=== PATIENT | female | born 1980 | race American Indian/Alaskan Native ===

== ENCOUNTER 2017-03-26 01:55 | Emergency (ER) | payer MEDICAID ==
[2017-03-26 02:02] VITALS: BP 126/86
[2017-03-26] MEDS ORDERED: TRIMOX PO ONE (06:17)
--- NOTE | 2017-03-26 06:22 | Emergency Department Report ---
HPI - General Chief Complaint: Dental/Oral Time Seen by Provider: 03/26/17 06:17 - HPI HPI: The patient is a 37-year-old female who presents to ED complaining of 7/10 pain in the right side of his mouth x 3 days . Patient states that the pain started 3 days ago and has increased in severity in yesterday. The pain is exacerbated by eating and opening of the mouth. Patient states the pain is not relieved with Goody powder and Tylenol medication. Patient states that it radiates towards ear. Patient describes a as a throbbing, pressure-like sensation. Patient states otherwise well and has no other complaints. Patient has had no fevers and no chills. No chest pain, no shortness of breath. No abdominal pain. No shortness of breath or recent trauma to the face. ED Past Medical Hx - Past Medical History Previous Medical History?: Yes Additional medical history: Vaginal delivery x 1 - Surgical History Past Surgical History?: Yes Additional Surgical History: - Social History Smoking Status: Never Smoker Substance Use Type: Alcohol - Medications Home Medications: Home Medications Medication Instructions Recorded Confirmed Last Taken Type Nystatin/Triamcin 1 applicatio TP BID #1 oint...g. 03/28/13 Unknown Rx [Nystatin-Triamcinolone Oint] methOCARBAMOL [Robaxin] 500 mg PO BID #30 tab 03/28/13 Unknown Rx predniSONE [Deltasone] 20 mg PO QDAY #5 tab 01/11/14 Unknown Rx traMADol [Ultram 50 MG tab] 50 mg PO Q6HR PRN #20 tablet 01/11/14 Unknown Rx Ibuprofen [Motrin] 400 mg PO Q8H PRN #30 tablet 07/12/14 Unknown Rx traMADol [Ultram] 50 mg PO Q6HR PRN #14 tablet 07/12/14 Unknown Rx Acetaminophen/Codeine [Tylenol #3] 1 tab PO Q6H PRN #15 tab 10/16/14 Unknown Rx Doxycycline [Vibramycin CAP] 100 mg PO BID #28 capsule 10/16/14 Unknown Rx Ibuprofen [Motrin 800 MG tab] 800 mg PO Q8HR PRN #30 tablet 10/16/14 Unknown Rx Penicillin Vk [Veetids TAB] 500 mg PO QID #28 tablet 10/16/14 Unknown Rx metroNIDAZOLE [Flagyl TAB] 500 mg PO BID #14 tab 10/16/14 Unknown Rx Amoxicillin [Trimox CAP] 500 mg PO Q8H #30 capsule 12/21/15 Unknown Rx Diclofenac Sodium 75 mg PO BID #20 tablet. 12/21/15 Unknown Rx Acetaminophen/Codeine [Tylenol 1 tab PO Q6H PRN #14 tab 03/26/17 Unknown Rx /Codeine # 3 tab] Amoxicillin [Trimox CAP] 500 mg PO Q8H #30 capsule 03/26/17 Unknown Rx Ibuprofen [Motrin 800 MG tab] 800 mg PO TID #30 tablet 03/26/17 Unknown Rx ED Review of Systems ROS: Stated complaint: TOOTHACHE Other details as noted in HPI Constitutional: denies: chills, fever Eyes: denies: eye pain, eye discharge, vision change ENT: dental pain. denies: ear pain, throat pain, epistaxis, congestion Respiratory: denies: cough, shortness of breath, wheezing Cardiovascular: denies: chest pain, palpitations Endocrine: no symptoms reported Gastrointestinal: denies: abdominal pain, nausea, vomiting, diarrhea Genitourinary: denies: urgency, dysuria, discharge Musculoskeletal: denies: back pain, joint swelling, arthralgia Skin: denies: rash, lesions Neurological: denies: headache, weakness, paresthesias Psychiatric: denies: anxiety, depression Hematological/Lymphatic: denies: easy bleeding, easy bruising Physical Exam - Physical Exam Vital Signs: Vital Signs 03/26/17 03/26/17 02:01 02:23 Temperature 98.3 F 98.3 F Pulse Rate 83 83 Respiratory 16 16 Rate Blood Pressure 126/86 Blood Pressure 126/86 [Right] O2 Sat by Pulse 97 97 Oximetry Physical Exam: GENERAL: Alert and oriented x3, no apparent distress, Normal Gait, atraumatic. HEAD: Head is normocephalic and a-traumatic. EYES: Extra ocular muscles are intact. Pupils are equal, round, and reactive to light and accommodation. EARS: symetrical, atraumatic, non tender, ear canal clear and moderate cerumen, tympanic membrance non inflamed. gross auditory nml bilaterally. NOSE: Nose symetrical, Nontender,Nares appeared normal. MOUTH:Mouth is well hydrated and without lesions. Tonsils nonerythematous or swollen, Uvula midline, Tongue not elevated. Mucous membranes are moist. Posterior pharynx clear, no exudate or lesions. Patent airways. Dental caries seen in tube #2,3, and 4, no gingiva enlargement, no bleeding of the gums. NECK: Supple. Non edematous, No lymphadenopathy or thyromegaly. No C-spine tenderness SKIN: Warm and dry, No lesions, No ulceration or induration present. ED Course Vital Signs 03/26/17 03/26/17 02:01 02:23 Temperature 98.3 F 98.3 F Pulse Rate 83 83 Respiratory 16 16 Rate Blood Pressure 126/86 Blood Pressure 126/86 [Right] O2 Sat by Pulse 97 97 Oximetry ED Medical Decision Making - Medical Decision Making 37-year-old female who presents with right-sided Facial pain secondary to odontogenic caries ED course: Patient received 1000 mg of amoxicillin, Odontogenic infection versus ear infection. Based upon history and physical examination, pain is a result of an infection of tooth number 2,3 and that the pain Pt feels on the right side of her face and towards the ear is referred pain from this infectious process. Pt has no evidence of acute impending airway compromise. At this point, patient will be discharged home on some antibiotics and pain trial, she will do well with an outpatient course of antibiotics. Follow up with the Dental Clinic as referred Vital signs are normal patient is in no acute distress. Pt had an effect uneventful ED stay Critical care attestation.: If time is entered above; I have spent that time in minutes in the direct care of this critically ill patient, excluding procedure time. ED Disposition Clinical Impression: Dental caries, Pain due to dental caries Disposition: TO HOME OR SELFCARE Is pt being admited?: No Does the pt Need Aspirin: No Condition: Stable Instructions: Toothache (ED), Dental Caries (ED) Additional Instructions: Make sure to follow up with the dentist as discussed. Take all your medications as you've been prescribed. If you have any worsening symptoms or develop new symptoms please return to ED immediately. Prescriptions: Acetaminophen/Codeine [Tylenol /Codeine # 3 tab] 1 tab PO Q6H PRN #14 tab PRN Reason: Pain Amoxicillin [Trimox CAP] 500 mg PO Q8H #30 capsule Ibuprofen [Motrin 800 MG tab] 800 mg PO TID #30 tablet Referrals: PRIMARY CARE, [Primary Care Provider] - 3-5 Days [facility] [Outside] - 3-5 Days [facility] [Outside] - 3-5 Days Forms: Accompanied Note, Work/School Release Form(ED) Time of Disposition: 06:23
== END 2017-03-26 06:20 | disposition home or self-care (01) ==
LOC: ED 01:55
DX: K02.9 Dental caries, unspecified (principal)
CPT/HCPCS: 99282

== ENCOUNTER 2017-05-27 19:12 | Emergency (ER) | payer MEDICAID ==
[2017-05-27 20:56] VITALS: BP 117/73
[2017-05-28] MEDS ORDERED: MOTRIN PO ONE (00:59)
--- NOTE | 2017-05-28 01:16 | Emergency Department Report ---
- General Chief Complaint: Wound/Laceration Stated Complaint: LAC TO LT 3RD DIGIT Time Seen by Provider: 05/28/17 00:58 Source: patient Mode of arrival: Ambulatory Limitations: No Limitations - History of Present Illness Initial Comments: 37-year-old -Niue[place] female comes in to the emergency room for laceration to her left middle finger 2 days ago. Patient reports she was at [facility] but did not stay to be seen. She reports worsening pain. Patient reports that the day of the injury she had soaked her hand and alcohol. She also place triple antibiotic cream and came to the [facility] emergency room. Patient has no past medical history currently taking no medications last menstrual period 05/20/2017. She has no known drug allergies. Location: other (Left hand middle finger) Extremity Location: Left: Hand Place: home Context: accidental Associated Symptoms: pain Treatments Prior to Arrival: bandage - Related Data Previous Rx's Medication Instructions Recorded Last Taken Type Nystatin/Triamcin 1 applicatio TP BID #1 oint...g. 03/28/13 Unknown Rx [Nystatin-Triamcinolone Oint] methOCARBAMOL [Robaxin] 500 mg PO BID #30 tab 03/28/13 Unknown Rx predniSONE [Deltasone] 20 mg PO QDAY #5 tab 01/11/14 Unknown Rx traMADol [Ultram 50 MG tab] 50 mg PO Q6HR PRN #20 tablet 01/11/14 Unknown Rx traMADol [Ultram] 50 mg PO Q6HR PRN #14 tablet 07/12/14 Unknown Rx Acetaminophen/Codeine [Tylenol #3] 1 tab PO Q6H PRN #15 tab 10/16/14 Unknown Rx Doxycycline [Vibramycin CAP] 100 mg PO BID #28 capsule 10/16/14 Unknown Rx Ibuprofen [Motrin 800 MG tab] 800 mg PO Q8HR PRN #30 tablet 10/16/14 Unknown Rx Penicillin Vk [Veetids TAB] 500 mg PO QID #28 tablet 10/16/14 Unknown Rx metroNIDAZOLE [Flagyl TAB] 500 mg PO BID #14 tab 10/16/14 Unknown Rx Amoxicillin [Trimox CAP] 500 mg PO Q8H #30 capsule 12/21/15 Unknown Rx Diclofenac Sodium 75 mg PO BID #20 tablet. 12/21/15 Unknown Rx Acetaminophen/Codeine [Tylenol 1 tab PO Q6H PRN #14 tab 03/26/17 Unknown Rx /Codeine # 3 tab] Amoxicillin [Trimox CAP] 500 mg PO Q8H #30 capsule 03/26/17 Unknown Rx Ibuprofen [Motrin 800 MG tab] 800 mg PO TID #30 tablet 03/26/17 Unknown Rx Cephalexin [Keflex] 500 mg PO Q12HR #20 cap 05/28/17 Unknown Rx Ibuprofen [Motrin 400 MG tab] 400 mg PO Q8H PRN #15 tablet 05/28/17 Unknown Rx Allergies Allergy/AdvReac Type Severity Reaction Status Date / Time No Known Allergies Allergy Verified 10/16/14 14:15 ED Review of Systems ROS: Stated complaint: LAC TO LT 3RD DIGIT Other details as noted in HPI Constitutional: denies: chills, fever Eyes: denies: eye pain, eye discharge, vision change ENT: denies: ear pain, throat pain Respiratory: denies: cough, shortness of breath, wheezing Cardiovascular: denies: chest pain, palpitations Endocrine: no symptoms reported Gastrointestinal: denies: abdominal pain, nausea, diarrhea Genitourinary: denies: urgency, dysuria, discharge Musculoskeletal: denies: back pain, joint swelling, arthralgia Skin: other (cut on left middle finger pain). denies: rash, lesions Neurological: denies: headache, weakness, paresthesias Psychiatric: denies: anxiety, depression Hematological/Lymphatic: denies: easy bleeding, easy bruising ED Past Medical Hx - Past Medical History Previous Medical History?: No Additional medical history: Vaginal delivery x 1 - Surgical History Additional Surgical History: - Social History Smoking Status: Current Every Day Smoker Substance Use Type: None - Medications Home Medications: Home Medications Medication Instructions Recorded Confirmed Last Taken Type Nystatin/Triamcin 1 applicatio TP BID #1 oint...g. 03/28/13 Unknown Rx [Nystatin-Triamcinolone Oint] methOCARBAMOL [Robaxin] 500 mg PO BID #30 tab 03/28/13 Unknown Rx predniSONE [Deltasone] 20 mg PO QDAY #5 tab 01/11/14 Unknown Rx traMADol [Ultram 50 MG tab] 50 mg PO Q6HR PRN #20 tablet 01/11/14 Unknown Rx traMADol [Ultram] 50 mg PO Q6HR PRN #14 tablet 07/12/14 Unknown Rx Acetaminophen/Codeine [Tylenol #3] 1 tab PO Q6H PRN #15 tab 10/16/14 Unknown Rx Doxycycline [Vibramycin CAP] 100 mg PO BID #28 capsule 10/16/14 Unknown Rx Ibuprofen [Motrin 800 MG tab] 800 mg PO Q8HR PRN #30 tablet 10/16/14 Unknown Rx Penicillin Vk [Veetids TAB] 500 mg PO QID #28 tablet 10/16/14 Unknown Rx metroNIDAZOLE [Flagyl TAB] 500 mg PO BID #14 tab 10/16/14 Unknown Rx Amoxicillin [Trimox CAP] 500 mg PO Q8H #30 capsule 12/21/15 Unknown Rx Diclofenac Sodium 75 mg PO BID #20 tablet. 12/21/15 Unknown Rx Acetaminophen/Codeine [Tylenol 1 tab PO Q6H PRN #14 tab 03/26/17 Unknown Rx /Codeine # 3 tab] Amoxicillin [Trimox CAP] 500 mg PO Q8H #30 capsule 03/26/17 Unknown Rx Ibuprofen [Motrin 800 MG tab] 800 mg PO TID #30 tablet 03/26/17 Unknown Rx Cephalexin [Keflex] 500 mg PO Q12HR #20 cap 05/28/17 Unknown Rx Ibuprofen [Motrin 400 MG tab] 400 mg PO Q8H PRN #15 tablet 05/28/17 Unknown Rx ED Physical Exam - General Limitations: No Limitations - Head Head exam: Present: atraumatic, normocephalic - Neurological Exam Neurological exam: Present: alert, oriented X3 - Psychiatric Psychiatric exam: Present: normal affect, normal mood - Skin Skin exam: Present: warm, dry, intact, other (laceration to the left middle proximal finger bleeding is controlled tenderness to palpate). Absent: erythema , ecchymosis ED Course Vital Signs 05/27/17 05/27/17 20:15 20:50 Temperature 98.6 F 32.1 F L Pulse Rate 77 76 Respiratory 16 16 Rate Blood Pressure 117/73 Blood Pressure 179/11 [Right] O2 Sat by Pulse 98 100 Oximetry ED Medical Decision Making - Medical Decision Making Patient has been evaluated by this provider fast track. I discussed the patient since has been over 12 hours for her laceration that we will not be able to suture it up for purpose of infection. I discussed the patient that we will soak it with warm water and Betadine. And bandaged it up. Discussed the patient she is to follow-up with her primary care provider. Patient verbalized understanding. Critical care attestation.: If time is entered above; I have spent that time in minutes in the direct care of this critically ill patient, excluding procedure time. ED Disposition Clinical Impression: Laceration of finger of left hand Qualifiers: Encounter type: initial encounter Finger: middle finger Damage to nail status: without damage Foreign body presence: with foreign body Qualified Code(s): S61.223A - Laceration with foreign body of left middle finger without damage to nail, initial encounter Disposition: - TO HOME OR SELFCARE Is pt being admited?: No Does the pt Need Aspirin: No Condition: Stable Instructions: Laceration (ED) Additional Instructions: Please keep the wound clean and dry. You may apply triple antibiotics. Change dressing daily. Tylenol or Motrin for pain control. Please follow-up with your primary care provider for further evaluation. Prescriptions: Cephalexin [Keflex] 500 mg PO Q12HR #20 cap Ibuprofen [Motrin 400 MG tab] 400 mg PO Q8H PRN #15 tablet PRN Reason: Pain Referrals: GRECIA ADKINS MD [Primary Care Provider] - 3-5 Days Forms: Work/School Release Form(ED)
[2017-05-28] MEDS ORDERED: BOOSTRIX IM ONE (01:49)
== END 2017-05-28 01:50 | disposition home or self-care (01) ==
LOC: ED 19:12
DX: S61.213A Laceration without foreign body of left middle finger without damage to nail, initial encounter (principal); F17.200 Nicotine dependence, unspecified, uncomplicated; X58.XXXA Exposure to other specified factors, initial encounter; Y93.89 Activity, other specified; Y92.89 Other specified places as the place of occurrence of the external cause; Y99.8 Other external cause status
CPT/HCPCS: 90471; 90715; 99282

== ENCOUNTER 2017-10-25 21:30 | Emergency (ER) | payer MEDICAID, OTHER ==
[2017-10-25 21:47] VITALS: BP 114/73
[2017-10-26] MEDS ORDERED: CLEOCIN PO ONE (00:06)
[2017-10-26] MEDS ORDERED: ULTRAM PO ONE (00:06)
[2017-10-26] MEDS ORDERED: ZOFRAN ODT ONE (00:08)
[2017-10-26] MEDS ORDERED: ZOFRAN ODT PO ONE (00:10)
--- NOTE | 2017-10-26 00:12 | Emergency Department Report ---
ED ENT HPI - General Chief complaint: Dental/Oral Stated complaint: TOOTHACHE/EAR/HEAD/STOMACH PAIN Time Seen by Provider: 10/25/17 23:48 Source: patient Mode of arrival: Ambulatory Limitations: No Limitations - History of Present Illness Initial comments: Patient with 37-year-old -[place] female presents with dental pain 1 month patient states unable to see given to see dentist has had similar flares of this dental carry for the past year patient denies fevers chills. No nausea vomiting no throat or ear pain patient denies smoking MD complaint: tooth pain Onset/Timin -: week(s) Location: tooth # (3) Severity: moderate Severity scale (0 -10): 5 Quality: aching Consistency: intermittent Improves with: none Worsens with: other (hot cold stimuli ) Context- Dental: history of dental caries, poor dental care Associated Symptoms: toothache. denies: fever, cough, gum swelling, pain with swallowing, sore throat, tinnitus, hearing loss, discharge from ear, rhinorrhea - Related Data Previous Rx's Medication Instructions Recorded Last Taken Type Nystatin/Triamcin 1 applicatio TP BID #1 oint...g. 03/28/13 Unknown Rx [Nystatin-Triamcinolone Oint] methOCARBAMOL [Robaxin] 500 mg PO BID #30 tab 03/28/13 Unknown Rx predniSONE [Deltasone] 20 mg PO QDAY #5 tab 01/11/14 Unknown Rx traMADol [Ultram 50 MG tab] 50 mg PO Q6HR PRN #20 tablet 01/11/14 Unknown Rx traMADol [Ultram] 50 mg PO Q6HR PRN #14 tablet 07/12/14 Unknown Rx Acetaminophen/Codeine [Tylenol #3] 1 tab PO Q6H PRN #15 tab 10/16/14 Unknown Rx Doxycycline [Vibramycin CAP] 100 mg PO BID #28 capsule 10/16/14 Unknown Rx Ibuprofen [Motrin 800 MG tab] 800 mg PO Q8HR PRN #30 tablet 10/16/14 Unknown Rx Penicillin Vk [Veetids TAB] 500 mg PO QID #28 tablet 10/16/14 Unknown Rx metroNIDAZOLE [Flagyl TAB] 500 mg PO BID #14 tab 10/16/14 Unknown Rx Amoxicillin [Trimox CAP] 500 mg PO Q8H #30 capsule 12/21/15 Unknown Rx Diclofenac Sodium 75 mg PO BID #20 tablet. 12/21/15 Unknown Rx Acetaminophen/Codeine [Tylenol 1 tab PO Q6H PRN #14 tab 03/26/17 Unknown Rx /Codeine # 3 tab] Amoxicillin [Trimox CAP] 500 mg PO Q8H #30 capsule 03/26/17 Unknown Rx Ibuprofen [Motrin 800 MG tab] 800 mg PO TID #30 tablet 03/26/17 Unknown Rx Cephalexin [Keflex] 500 mg PO Q12HR #20 cap 05/28/17 Unknown Rx Ibuprofen [Motrin 400 MG tab] 400 mg PO Q8H PRN #15 tablet 05/28/17 Unknown Rx Chlorhexidine Mouthwash [Peridex] 15 ml MM BID #1 bottle 10/26/17 Unknown Rx Clindamycin [Clindamycin CAP] 300 mg PO Q8H #30 cap 10/26/17 Unknown Rx Naproxen [Naprosyn TAB] 500 mg PO BID PRN #60 tablet 10/26/17 Unknown Rx Ondansetron [Zofran Odt] 4 mg PO TID PRN #10 tab.rapdis 10/26/17 Unknown Rx Ranitidine HCl [Zantac 150 MG TAB] 150 mg PO BID #60 tablet 10/26/17 Unknown Rx Allergies Allergy/AdvReac Type Severity Reaction Status Date / Time No Known Allergies Allergy Verified 10/16/14 14:15 ED Dental HPI - General Chief complaint: Dental/Oral Stated complaint: TOOTHACHE/EAR/HEAD/STOMACH PAIN Time Seen by Provider: 10/25/17 23:48 Source: patient Mode of arrival: Ambulatory Limitations: No Limitations - Related Data Previous Rx's Medication Instructions Recorded Last Taken Type Nystatin/Triamcin 1 applicatio TP BID #1 oint...g. 03/28/13 Unknown Rx [Nystatin-Triamcinolone Oint] methOCARBAMOL [Robaxin] 500 mg PO BID #30 tab 03/28/13 Unknown Rx predniSONE [Deltasone] 20 mg PO QDAY #5 tab 01/11/14 Unknown Rx traMADol [Ultram 50 MG tab] 50 mg PO Q6HR PRN #20 tablet 01/11/14 Unknown Rx traMADol [Ultram] 50 mg PO Q6HR PRN #14 tablet 07/12/14 Unknown Rx Acetaminophen/Codeine [Tylenol #3] 1 tab PO Q6H PRN #15 tab 10/16/14 Unknown Rx Doxycycline [Vibramycin CAP] 100 mg PO BID #28 capsule 10/16/14 Unknown Rx Ibuprofen [Motrin 800 MG tab] 800 mg PO Q8HR PRN #30 tablet 10/16/14 Unknown Rx Penicillin Vk [Veetids TAB] 500 mg PO QID #28 tablet 10/16/14 Unknown Rx metroNIDAZOLE [Flagyl TAB] 500 mg PO BID #14 tab 10/16/14 Unknown Rx Amoxicillin [Trimox CAP] 500 mg PO Q8H #30 capsule 12/21/15 Unknown Rx Diclofenac Sodium 75 mg PO BID #20 tablet.dr 12/21/15 Unknown Rx Acetaminophen/Codeine [Tylenol 1 tab PO Q6H PRN #14 tab 03/26/17 Unknown Rx /Codeine # 3 tab] Amoxicillin [Trimox CAP] 500 mg PO Q8H #30 capsule 03/26/17 Unknown Rx Ibuprofen [Motrin 800 MG tab] 800 mg PO TID #30 tablet 03/26/17 Unknown Rx Cephalexin [Keflex] 500 mg PO Q12HR #20 cap 05/28/17 Unknown Rx Ibuprofen [Motrin 400 MG tab] 400 mg PO Q8H PRN #15 tablet 05/28/17 Unknown Rx Chlorhexidine Mouthwash [Peridex] 15 ml MM BID #1 bottle 10/26/17 Unknown Rx Clindamycin [Clindamycin CAP] 300 mg PO Q8H #30 cap 10/26/17 Unknown Rx Naproxen [Naprosyn TAB] 500 mg PO BID PRN #60 tablet 10/26/17 Unknown Rx Ondansetron [Zofran Odt] 4 mg PO TID PRN #10 tab.rapdis 10/26/17 Unknown Rx Ranitidine HCl [Zantac 150 MG TAB] 150 mg PO BID #60 tablet 10/26/17 Unknown Rx Allergies Allergy/AdvReac Type Severity Reaction Status Date / Time No Known Allergies Allergy Verified 10/16/14 14:15 ED Review of Systems ROS: Stated complaint: TOOTHACHE/EAR/HEAD/STOMACH PAIN Other details as noted in HPI Constitutional: denies: chills, fever Eyes: denies: eye pain, eye discharge, vision change ENT: dental pain. denies: ear pain, throat pain Respiratory: denies: cough, shortness of breath, wheezing Cardiovascular: denies: chest pain, palpitations Endocrine: no symptoms reported Gastrointestinal: denies: abdominal pain, nausea, diarrhea Genitourinary: denies: urgency, dysuria, discharge Musculoskeletal: denies: back pain, joint swelling, arthralgia Skin: denies: rash, lesions Neurological: denies: headache, weakness, paresthesias Psychiatric: denies: anxiety, depression Hematological/Lymphatic: denies: easy bleeding, easy bruising ED Past Medical Hx - Past Medical History Additional medical history: Vaginal delivery x 1 - Surgical History Additional Surgical History: - Social History Smoking Status: Current Every Day Smoker Substance Use Type: None - Medications Home Medications: Home Medications Medication Instructions Recorded Confirmed Last Taken Type Nystatin/Triamcin 1 applicatio TP BID #1 oint...g. 03/28/13 Unknown Rx [Nystatin-Triamcinolone Oint] methOCARBAMOL [Robaxin] 500 mg PO BID #30 tab 03/28/13 Unknown Rx predniSONE [Deltasone] 20 mg PO QDAY #5 tab 01/11/14 Unknown Rx traMADol [Ultram 50 MG tab] 50 mg PO Q6HR PRN #20 tablet 01/11/14 Unknown Rx traMADol [Ultram] 50 mg PO Q6HR PRN #14 tablet 07/12/14 Unknown Rx Acetaminophen/Codeine [Tylenol #3] 1 tab PO Q6H PRN #15 tab 10/16/14 Unknown Rx Doxycycline [Vibramycin CAP] 100 mg PO BID #28 capsule 10/16/14 Unknown Rx Ibuprofen [Motrin 800 MG tab] 800 mg PO Q8HR PRN #30 tablet 10/16/14 Unknown Rx Penicillin Vk [Veetids TAB] 500 mg PO QID #28 tablet 10/16/14 Unknown Rx metroNIDAZOLE [Flagyl TAB] 500 mg PO BID #14 tab 10/16/14 Unknown Rx Amoxicillin [Trimox CAP] 500 mg PO Q8H #30 capsule 12/21/15 Unknown Rx Diclofenac Sodium 75 mg PO BID #20 tablet.dr 12/21/15 Unknown Rx Acetaminophen/Codeine [Tylenol 1 tab PO Q6H PRN #14 tab 03/26/17 Unknown Rx /Codeine # 3 tab] Amoxicillin [Trimox CAP] 500 mg PO Q8H #30 capsule 03/26/17 Unknown Rx Ibuprofen [Motrin 800 MG tab] 800 mg PO TID #30 tablet 03/26/17 Unknown Rx Cephalexin [Keflex] 500 mg PO Q12HR #20 cap 05/28/17 Unknown Rx Ibuprofen [Motrin 400 MG tab] 400 mg PO Q8H PRN #15 tablet 05/28/17 Unknown Rx Chlorhexidine Mouthwash [Peridex] 15 ml MM BID #1 bottle 10/26/17 Unknown Rx Clindamycin [Clindamycin CAP] 300 mg PO Q8H #30 cap 10/26/17 Unknown Rx Naproxen [Naprosyn TAB] 500 mg PO BID PRN #60 tablet 10/26/17 Unknown Rx Ondansetron [Zofran Odt] 4 mg PO TID PRN #10 tab.rapdis 10/26/17 Unknown Rx Ranitidine HCl [Zantac 150 MG TAB] 150 mg PO BID #60 tablet 10/26/17 Unknown Rx ED Physical Exam - General Limitations: No Limitations General appearance: alert, in no apparent distress - Head Head exam: Present: atraumatic, normocephalic - Eye Eye exam: Present: normal appearance - ENT ENT exam: Present: mucous membranes moist, TM's normal bilaterally, normal external ear exam - Expanded ENT Exam Expanded Teeth exam: Present: dental caries (#4 mild gum erythema no swelling on facial swelling uvula midline no stridor ) - Neck Neck exam: Present: normal inspection, full ROM. Absent: tenderness, lymphadenopathy, thyromegaly - Respiratory Respiratory exam: Present: normal lung sounds bilaterally. Absent: respiratory distress, wheezes, stridor, chest wall tenderness - Cardiovascular Cardiovascular Exam: Present: regular rate, normal rhythm, normal heart sounds. Absent: systolic murmur, diastolic murmur, rubs, gallop - GI/Abdominal GI/Abdominal exam: Present: soft, normal bowel sounds. Absent: distended, tenderness, guarding, rebound, rigid, organomegaly, mass, bruit, pulsatile mass , hernia - Rectal Rectal exam: Present: deferred - Extremities Exam Extremities exam: Present: normal inspection - Back Exam Back exam: Present: normal inspection - Neurological Exam Neurological exam: Present: alert, oriented X3, CN II-XII intact, normal gait, reflexes normal - Psychiatric Psychiatric exam: Present: normal affect, normal mood - Skin Skin exam: Present: warm, dry, intact, normal color. Absent: rash ED Course Vital Signs 10/25/17 21:44 Temperature 99.1 F Pulse Rate 67 Respiratory 18 Rate Blood Pressure 114/73 O2 Sat by Pulse 100 Oximetry ED Medical Decision Making - Medical Decision Making This is infected dental caries without focal abscess acute on chronic condition patient directed to follow up with dentist as without definitive treatment pain and infection will recur patient verbalizes understanding and agreement was signed will be DC'd to home in stable condition at this time with prescription for clindamycin and peridx Ultram when necessary pain Critical care attestation.: If time is entered above; I have spent that time in minutes in the direct care of this critically ill patient, excluding procedure time. ED Disposition Clinical Impression: Infected dental carries Disposition: [id number]-01 TO HOME OR SELFCARE Is pt being admited?: No Does the pt Need Aspirin: No Condition: Good Instructions: Dental Caries (ED), Toothache (ED) Prescriptions: Chlorhexidine Mouthwash [Peridex] 15 ml MM BID #1 bottle Clindamycin [Clindamycin CAP] 300 mg PO Q8H #30 cap Naproxen [Naprosyn TAB] 500 mg PO BID PRN #60 tablet PRN Reason: pain Ondansetron [Zofran Odt] 4 mg PO TID PRN #10 tab.rapdis PRN Reason: Nausea Ranitidine HCl [Zantac 150 MG TAB] 150 mg PO BID #60 tablet Referrals: PRIMARY CARE, [Primary Care Provider] - 3-5 Days [facility] [Outside] - 3-5 Days Forms: Work/School Release Form(ED) Time of Disposition: 00:21
== END 2017-10-26 00:25 | disposition home or self-care (01) ==
LOC: ED 21:30
DX: K02.9 Dental caries, unspecified (principal); F17.200 Nicotine dependence, unspecified, uncomplicated
CPT/HCPCS: 99282; Q0162

== ENCOUNTER 2018-05-03 16:04 | Emergency (ER) | payer SELFPAY ==
--- NOTE | 2018-05-03 16:37 | Emergency Department Report ---
Blank Doc - Documentation Documentation: This is a 38-year-old female that presents with vaginal spotting, vaginal disc harge, and pelvic pain. Concerned about STD. Denies any urinary symptoms. This initial assessment diagnostic orders/clinical plan/treatment(s) is/are subject to change based on patient's health status, clinical progression and re- assessment by fellow clinical providers in the ED. Further treatment and workup at subsequent clinical providers discretion. Patient/guardians urged not to elope from ED s their condition may be serious if not clinically assessed and managed. Initial orders include: 1-Patient sent to [facility] for further evaluation and treatment 2- UA 3- wet prep
[2018-05-03 16:38] VITALS: BP 128/89
[2018-05-03 17:12] LABS: Bilirubin,Urine NEG (Negative); Blood,Urine NEG (Negative); Color,Urine Straw (Yellow); Protein,Urine <15 mg/dL mg/dL (Negative); Urobilinogen,Urine < 2.0 mg/dL (<2.0)
[2018-05-03 17:21] LABS: HCG Qualitative,Urine Negative (Negative)
== END 2018-05-03 20:35 | disposition left against medical advice (07) ==
LOC: ED 16:04
DX: N93.9 Abnormal uterine and vaginal bleeding, unspecified (principal); Z53.21 Procedure and treatment not carried out due to patient leaving prior to being seen by health care provider
CPT/HCPCS: 81001; 81025

== ENCOUNTER 2018-05-10 10:42 | Emergency (ER) | payer SELFPAY ==
--- NOTE | 2018-05-10 11:17 | Emergency Department Report ---
Blank Doc - Documentation Documentation: This is a 38-year-old female that presents with vaginal discharge and pelvic p ain. Concerned about STD. Denies any urinary symptoms. This initial assessment diagnostic orders/clinical plan/treatment(s) is/are subject to change based on patient's health status, clinical progression and re- assessment by fellow clinical providers in the ED. Further treatment and workup at subsequent clinical providers discretion. Patient/guardians urged not to elope from ED s their condition may be serious if not clinically assessed and managed. Initial orders include: 1-Patient sent to [facility] for further evaluation and treatment 2- UA 3- wet prep
[2018-05-10 11:19] VITALS: BP 135/83
[2018-05-10 11:40] LABS: Bacteria,Urine 2+ /HPF (Negative); Bilirubin,Urine NEG (Negative); Blood,Urine NEG (Negative); Color,Urine Yellow (Yellow); Protein,Urine <15 mg/dL mg/dL (Negative); Urobilinogen,Urine < 2.0 mg/dL (<2.0)
[2018-05-10 11:46] LABS: HCG Qualitative,Urine Negative (Negative)
[2018-05-10] MEDS ORDERED: ROCEPHIN IM ONE (15:09)
[2018-05-10] MEDS ORDERED: XYLOCAINE 1% MPF 5 mL INFILTRATI ONE (15:09)
[2018-05-10] MEDS ORDERED: FLAGYL PO ONE (15:09)
[2018-05-10] MEDS ORDERED: ZITHROMAX PO ONE (15:09)
[2018-05-10] MEDS ORDERED: IBUPROFEN PO ONE (15:10)
--- NOTE | 2018-05-10 15:21 | Emergency Department Report ---
ED Female HPI - General Chief complaint: Abdominal Pain Stated complaint: ABD/BACK PAIN Time Seen by Provider: 05/10/18 11:16 Source: patient Mode of arrival: Ambulatory Limitations: No Limitations - History of Present Illness Initial comments: This is a 38-year-old female presenting a complaining of vaginal discharge and tablet. For the past 2 weeks. Patient states she had vaginal discharge about 2 weeks ago and then got her cycle. Patient states after her menstrual cycle was done she still had a malodorous vaginal discharge. Patient denies any vaginal itching, fever, dysuria, hematuria. She states last menstrual period 2 2018. Patient states that she went to her boyfriend's phone and said that he had been cheating on her. Patient states that she possibly has an STD. MD Complaint: vaginal discharge, pelvic pain, possible STD Location: suprapubic Radiation: non-radiating Severity: moderate Severity scale (0 -10): 6 Worsens with: none Are you Now?: No - Related Data Previous Rx's Medication Instructions Recorded Last Taken Type Nystatin/Triamcin 1 applicatio TP BID #1 oint...g. 03/28/13 Unknown Rx [Nystatin-Triamcinolone Oint] methOCARBAMOL [Robaxin] 500 mg PO BID #30 tab 03/28/13 Unknown Rx predniSONE [Deltasone] 20 mg PO QDAY #5 tab 01/11/14 Unknown Rx traMADol [Ultram 50 MG tab] 50 mg PO Q6HR PRN #20 tablet 01/11/14 Unknown Rx Acetaminophen/Codeine [Tylenol #3] 1 tab PO Q6H PRN #15 tab 10/16/14 Unknown Rx Doxycycline [Vibramycin CAP] 100 mg PO BID #28 capsule 10/16/14 Unknown Rx Ibuprofen [Motrin 800 MG tab] 800 mg PO Q8HR PRN #30 tablet 10/16/14 Unknown Rx Penicillin Vk [Veetids TAB] 500 mg PO QID #28 tablet 10/16/14 Unknown Rx Amoxicillin [Trimox CAP] 500 mg PO Q8H #30 capsule 12/21/15 Unknown Rx Diclofenac Sodium 75 mg PO BID #20 tablet. 12/21/15 Unknown Rx Acetaminophen/Codeine [Tylenol 1 tab PO Q6H PRN #14 tab 03/26/17 Unknown Rx /Codeine # 3 tab] Amoxicillin [Trimox CAP] 500 mg PO Q8H #30 capsule 03/26/17 Unknown Rx Ibuprofen [Motrin 800 MG tab] 800 mg PO TID #30 tablet 03/26/17 Unknown Rx Ibuprofen [Motrin 400 MG tab] 400 mg PO Q8H PRN #15 tablet 05/28/17 Unknown Rx cephALEXin [Keflex] 500 mg PO Q12HR #20 cap 05/28/17 Unknown Rx Chlorhexidine Mouthwash [Peridex] 15 ml MM BID #1 bottle 10/26/17 Unknown Rx Clindamycin [Clindamycin CAP] 300 mg PO Q8H #30 cap 10/26/17 Unknown Rx Naproxen [Naprosyn TAB] 500 mg PO BID PRN #60 tablet 10/26/17 Unknown Rx Ondansetron [Zofran Odt] 4 mg PO TID PRN #10 tab.rapdis 10/26/17 Unknown Rx Ranitidine HCl [Zantac 150 MG TAB] 150 mg PO BID #60 tablet 10/26/17 Unknown Rx metroNIDAZOLE [Flagyl TAB] 500 mg PO BID #14 tab 05/10/18 Unknown Rx traMADol [Ultram 50 MG tab] 50 mg PO Q6HR PRN #14 tablet 05/10/18 Unknown Rx Allergies Allergy/AdvReac Type Severity Reaction Status Date / Time No Known Allergies Allergy Verified 10/16/14 14:15 ED Review of Systems ROS: Stated complaint: ABD/BACK PAIN Other details as noted in HPI Comment: All other systems reviewed and negative ED Past Medical Hx - Past Medical History Previous Medical History?: No Additional medical history: Vaginal delivery x 1 - Surgical History Past Surgical History?: No Additional Surgical History: - Social History Smoking Status: Current Some Day Smoker Substance Use Type: Alcohol - Medications Home Medications: Home Medications Medication Instructions Recorded Confirmed Last Taken Type Nystatin/Triamcin 1 applicatio TP BID #1 oint...g. 03/28/13 Unknown Rx [Nystatin-Triamcinolone Oint] methOCARBAMOL [Robaxin] 500 mg PO BID #30 tab 03/28/13 Unknown Rx predniSONE [Deltasone] 20 mg PO QDAY #5 tab 01/11/14 Unknown Rx traMADol [Ultram 50 MG tab] 50 mg PO Q6HR PRN #20 tablet 01/11/14 Unknown Rx Acetaminophen/Codeine [Tylenol #3] 1 tab PO Q6H PRN #15 tab 10/16/14 Unknown Rx Doxycycline [Vibramycin CAP] 100 mg PO BID #28 capsule 10/16/14 Unknown Rx Ibuprofen [Motrin 800 MG tab] 800 mg PO Q8HR PRN #30 tablet 10/16/14 Unknown Rx Penicillin Vk [Veetids TAB] 500 mg PO QID #28 tablet 10/16/14 Unknown Rx Amoxicillin [Trimox CAP] 500 mg PO Q8H #30 capsule 12/21/15 Unknown Rx Diclofenac Sodium 75 mg PO BID #20 tablet. 12/21/15 Unknown Rx Acetaminophen/Codeine [Tylenol 1 tab PO Q6H PRN #14 tab 03/26/17 Unknown Rx /Codeine # 3 tab] Amoxicillin [Trimox CAP] 500 mg PO Q8H #30 capsule 03/26/17 Unknown Rx Ibuprofen [Motrin 800 MG tab] 800 mg PO TID #30 tablet 03/26/17 Unknown Rx Ibuprofen [Motrin 400 MG tab] 400 mg PO Q8H PRN #15 tablet 05/28/17 Unknown Rx cephALEXin [Keflex] 500 mg PO Q12HR #20 cap 05/28/17 Unknown Rx Chlorhexidine Mouthwash [Peridex] 15 ml MM BID #1 bottle 10/26/17 Unknown Rx Clindamycin [Clindamycin CAP] 300 mg PO Q8H #30 cap 10/26/17 Unknown Rx Naproxen [Naprosyn TAB] 500 mg PO BID PRN #60 tablet 10/26/17 Unknown Rx Ondansetron [Zofran Odt] 4 mg PO TID PRN #10 tab.rapdis 10/26/17 Unknown Rx Ranitidine HCl [Zantac 150 MG TAB] 150 mg PO BID #60 tablet 10/26/17 Unknown Rx metroNIDAZOLE [Flagyl TAB] 500 mg PO BID #14 tab 05/10/18 Unknown Rx traMADol [Ultram 50 MG tab] 50 mg PO Q6HR PRN #14 tablet 05/10/18 Unknown Rx ED Physical Exam - General Limitations: No Limitations General appearance: alert, in no apparent distress - Head Head exam: Present: atraumatic, normocephalic - Eye Eye exam: Present: normal appearance - ENT ENT exam: Present: mucous membranes moist - Neck Neck exam: Present: normal inspection - Respiratory Respiratory exam: Present: normal lung sounds bilaterally. Absent: respiratory distress - Cardiovascular Cardiovascular Exam: Present: regular rate, normal rhythm. Absent: systolic murmur, diastolic murmur, rubs, gallop - GI/Abdominal GI/Abdominal exam: Present: soft, normal bowel sounds - External exam: Present: normal external exam. Absent: erythema, swelling, lesions, bleeding - Extremities Exam Extremities exam: Present: normal inspection - Back Exam Back exam: Present: normal inspection, full ROM. Absent: tenderness, CVA tenderness (R), CVA tenderness (L) - Neurological Exam Neurological exam: Present: alert, oriented X3 - Psychiatric Psychiatric exam: Present: normal affect, normal mood - Skin Skin exam: Present: warm, dry, intact, normal color. Absent: rash ED Course Vital Signs 05/10/18 11:16 Temperature 98.3 F Pulse Rate 84 Respiratory 16 Rate Blood Pressure 135/83 [Left] O2 Sat by Pulse 99 Oximetry ED Medical Decision Making - Medical Decision Making 38-year-old female presents with STD exposure. ED course: Patient received 250 mg of Rocephin, azithromycin 1 g, Flagyl 2 g. Discussed with patient possible STD due to exposure. Discussed with patient findings and treatment Discussed prophylaxis treatment patient is to abstain from sex 7-10 days as treatment. Discussed patient partner knowledge and treatment. Discussed the follow-up with the health department for further STD testing. For also for [facility] given as well Patient's alert and oriented times 3. Vital signs are normal patient is in no acute discharge. Patient will be discharged home with instructions. Critical care attestation.: If time is entered above; I have spent that time in minutes in the direct care of this critically ill patient, excluding procedure time. ED Disposition Clinical Impression: STD (sexually transmitted disease), Vaginitis Disposition: [id number] TO HOME OR SELFCARE Is pt being admited?: No Does the pt Need Aspirin: No Condition: Stable Instructions: Abdominal Pain (ED), Bacterial Vaginosis (ED), Sexually Transmitted Diseases (ED), Safe Sex (ED) Additional Instructions: Make sure to follow up with the primary care physician as discussed. Take all your medications as you've been prescribed. If you have any worsening symptoms or develop new symptoms please return to ED immediately. Prescriptions: metroNIDAZOLE [Flagyl TAB] 500 mg PO BID #14 tab traMADol [Ultram 50 MG tab] 50 mg PO Q6HR PRN #14 tablet PRN Reason: Pain Referrals: MARVIN GEORGE MD [Primary Care Provider] - 3-5 Days GINNY REDDY MD [Referring] - 3-5 Days [facility] [Provider Group] - 3-5 Days Forms: Work/School Release Form(ED) Time of Disposition: 15:47
== END 2018-05-10 16:00 | disposition home or self-care (01) ==
LOC: ED 10:42
DX: N76.0 Acute vaginitis (principal); A64 Unspecified sexually transmitted disease; F17.200 Nicotine dependence, unspecified, uncomplicated
CPT/HCPCS: 81001; 81025; 96372; 99284; J0696

== ENCOUNTER 2018-09-28 19:40 | Inpatient (IN) | payer SELFPAY ==
[2018-09-28 21:31] LABS: Basophils # (Auto) 0.1 K/mm3 (0.0-0.1); Basophils % (Auto) 1.1 % (0.0-1.8); Eosinophils # (Auto) 0.3 K/mm3 (0.0-0.4); Eosinophils % (Auto) 4.2 % (0.0-4.3); Hematocrit 36.1 % (30.3-42.9); Hemoglobin 12.2 gm/dl (10.1-14.3); Lymphocytes # (Auto) 1.6 K/mm3 (1.2-5.4); Lymphocytes % (Auto) 25.8 % (13.4-35.0); Mean Corpuscular HGB Conc 34 % (30-34); Mean Corpuscular Volume 92 fl (79-97); Monocytes # (Auto) 0.4 K/mm3 (0.0-0.8); Monocytes % (Auto) 7.4 % (0.0-7.3); Platelet Count 236 K/mm3 (140-440); Red Blood Count 3.94 M/mm3 (3.65-5.03); Red Cell Distribution Width 15.1 % (13.2-15.2)
[2018-09-28 22:03] LABS: Alanine Aminotransferase 8 units/L (7-56); BUN/Creatinine Ratio 10; Blood Urea Nitrogen 7 mg/dL (7-17); Calcium 9.3 mg/dL (8.4-10.2)
[2018-09-28 22:04] LABS: Albumin 4.3 g/dL (3.9-5); Hemolysis Index 16
[2018-09-28] MEDS ORDERED: TORADOL IV ONE (22:18)
[2018-09-28] MEDS ORDERED: DUONEB *Not for PRN Use IH ONE (22:18)
--- NOTE | 2018-09-28 22:26 | Emergency Department Report ---
ED Neuro Deficit HPI - General Chief Complaint: Chest Pain Stated Complaint: HEADACHE/CP/LEFT SIDE NUMBNESS Time Seen by Provider: 09/28/18 21:06 Source: patient Mode of arrival: Ambulatory Limitations: No Limitations - History of Present Illness Initial Comments: 38-year-old female with a past medical history of previous bronchitis presents to the hospital with complaints of chest pain, shortness of breath, and cough 1 week and left sided numbness 2 days. Chest pain: Chest pain is sharp and includes the upper left and right part of the chest. It is, intermittent and worse with movement and cough. Patient has a nonproductive cough and episodes of wheezing that are worse at night. She denies fever, calf tenderness, leg edema, recent travel, history of PEs as DVT, or current control pill use. Today patient was using a leaf blower backpack she may have exacerbated the pain. Left-sided numbness Patient has had intermittent tingling to the left side of her face, left arm, and left leg 2 days. Symptoms were intermittent but have been more persistent since this a.m. At 3 AM patient states she woke up severely short of breath and had extreme numbness and paresthesia to her left arm. She felt like it was " for a couple of seconds". When she started to move her extremities slowly she felt like "blood flow was improved" and movement improved. Patient also complained of left-sided frontal sharp headache. She denies neck pain or recent head/neck injury - Related Data Home Medications: Home Medications Medication Instructions Recorded Confirmed Last Taken No Known Home Medications [No 09/29/18 09/29/18 Unknown Reported Home Medications] Allergies/Adverse Reactions: Allergies Allergy/AdvReac Type Severity Reaction Status Date / Time No Known Allergies Allergy Verified 10/16/14 14:15 ED Review of Systems ROS: Stated complaint: HEADACHE/CP/LEFT SIDE NUMBNESS Other details as noted in HPI Comment: All other systems reviewed and negative ED Past Medical Hx - Past Medical History Previous Medical History?: Yes Additional medical history: Vaginal delivery x 1 - Surgical History Additional Surgical History: - Social History Smoking Status: Current Every Day Smoker Substance Use Type: Marijuana - Medications Home Medications: Home Medications Medication Instructions Recorded Confirmed Last Taken Type No Known Home Medications [No 09/29/18 09/29/18 Unknown History Reported Home Medications] ED Neuro Physical Exam - General Limitations: No Limitations Suspected Stroke: No - NIHSS Assessment Interval: Baseline 1a. Level of Consciousness: alert/keenly responsive 1b. LOC Questions: answers both correctly 1c. LOC Commands: performs tasks correctly 2. Best Gaze: normal 3. Visual: no visual loss 4. Facial Palsy: normal symmetrical movement 5b. Motor Arm Right: no drift 5a. Motor Arm Left: no drift 6a. Motor Leg Left: no drift 6b. Motor Leg Right: no drift 7. Limb Ataxia: absent 8. Sensory: mild/moderate sensory loss 9. Best Language: no aphasia 10. Dysarthria: normal 11. Extinction/Inattention: no abnormality Total Score: 1 Stroke Severity: Minor Stroke - Psychiatric Psychiatric exam: Present: normal mood - Other Other exam information: General: No limitations, patient is alert in no acute distress Head exam: Atraumatic, normocephalic Eyes exam: Normal appearance, pupils equal reactive to light, extraocular movements intact ENT: Moist mucous membrane, normal oropharynx Neck exam: Normal inspection, full range of motion, no meningismus nontender Respiratory exam: Clear to auscultation bilateral, no wheezes, rales, crackles Cardiovascular: Normal rate and rhythm or reproducible upper bilateral chest wall tenderness Abdomen: Soft, nondistended, and nontender, with normal bowel sounds, no rebound, or guarding Extremity: Full range of motion normal inspection no deformity Back: Normal Inspection, full range of motion, no tenderness Neurologic: Alert, oriented x3, cranial nerves intact, paresthesias reported to left face, left arm, and left leg. Sensation intact but feels hypersensitive compared to the right. 5/5 upper right and upper left extremity strength Psychiatric: normal affect, normal mood Skin: Warm, dry, intact ED Course Vital Signs 09/28/18 09/28/18 09/28/18 19:58 20:58 21:23 Temperature 98.2 F 98.2 F Pulse Rate 79 79 60 Pulse Rate [ Bilateral Throughout] Respiratory 16 16 11 L Rate Respiratory Rate [Bilateral Throughout] Blood Pressure 118/83 118/83 O2 Sat by Pulse 99 99 100 Oximetry 09/28/18 09/28/18 09/28/18 21:28 21:30 21:46 Temperature Pulse Rate 68 62 Pulse Rate [ Bilateral Throughout] Respiratory 19 10 L 15 Rate Respiratory Rate [Bilateral Throughout] Blood Pressure 129/90 129/90 O2 Sat by Pulse 100 Oximetry 09/28/18 09/28/18 09/28/18 22:00 22:16 22:30 Temperature Pulse Rate 63 Pulse Rate [ 67 Bilateral Throughout] Respiratory 16 Rate Respiratory 18 Rate [Bilateral Throughout] Blood Pressure 133/85 133/85 133/85 O2 Sat by Pulse 99 83 L 99 Oximetry 09/28/18 09/28/18 09/28/18 22:38 22:46 23:00 Temperature Pulse Rate 74 74 Pulse Rate [ 75 Bilateral Throughout] Respiratory 12 11 L Rate Respiratory 18 Rate [Bilateral Throughout] Blood Pressure 133/85 129/90 O2 Sat by Pulse 97 98 Oximetry 09/28/18 09/28/18 09/28/18 23:08 23:15 23:30 Temperature Pulse Rate 67 69 64 Pulse Rate [ Bilateral Throughout] Respiratory 10 L 10 L 12 Rate Respiratory Rate [Bilateral Throughout] Blood Pressure 133/85 125/72 117/78 O2 Sat by Pulse 98 97 Oximetry 09/29/18 09/29/18 00:29 00:30 Temperature Pulse Rate Pulse Rate [ Bilateral Throughout] Respiratory Rate Respiratory Rate [Bilateral Throughout] Blood Pressure 117/78 131/76 O2 Sat by Pulse 100 98 Oximetry - Consultations Consultation #1: 09/28/18 22:47 case d/w Dr. Yee neuro, rec admission for MRI - Lab Data Result diagrams: 09/28/18 21:21 09/28/18 21:21 Lab Results 09/28/18 09/28/18 09/28/18 Range/Units 21:21 21:21 21:21 WBC 6.1 (4.5-11.0) K/mm3 RBC 3.94 (3.65-5.03) M/mm3 Hgb 12.2 (10.1-14.3) gm/dl Hct 36.1 (30.3-42.9) % MCV 92 (79-97) fl MCH 31 (28-32) pg MCHC 34 (30-34) % RDW 15.1 (13.2-15.2) % Plt Count 236 (140-440) K/mm3 Lymph % (Auto) 25.8 (13.4-35.0) % [place] % (Auto) 7.4 H (0.0-7.3) % Eos % (Auto) 4.2 (0.0-4.3) % Baso % (Auto) 1.1 (0.0-1.8) % Lymph # 1.6 (1.2-5.4) K/mm3 [place] # 0.4 (0.0-0.8) K/mm3 Eos # 0.3 (0.0-0.4) K/mm3 Baso # 0.1 (0.0-0.1) K/mm3 Seg Neutrophils % 61.5 (40.0-70.0) % Seg Neutrophils # 3.7 (1.8-7.7) K/mm3 D-Dimer 143.25 (0-234) ng/mlDDU Sodium 139 (137-145) mmol/L Potassium 3.4 L (3.6-5.0) mmol/L Chloride 102.6 (98-107) mmol/L Carbon Dioxide 24 (22-30) mmol/L Anion Gap 16 mmol/L BUN 7 (7-17) mg/dL Creatinine 0.7 (0.7-1.2) mg/dL Estimated GFR > 60 ml/min BUN/Creatinine Ratio 10 % Glucose 72 (65-100) mg/dL Calcium 9.3 (8.4-10.2) mg/dL Magnesium (1.7-2.3) mg/dL Total Bilirubin 1.50 H (0.1-1.2) mg/dL AST 14 (5-40) units/L ALT 8 (7-56) units/L Alkaline Phosphatase 65 (35-129) units/L Troponin T < 0.010 (0.00-0.029) ng/mL Total Protein 7.6 (6.3-8.2) g/dL Albumin 4.3 (3.9-5) g/dL Albumin/Globulin Ratio 1.3 % Urine Color (Yellow) Urine Turbidity (Clear) Urine pH (5.0-7.0) Ur Specific [place] (1.003-1.030) Urine Protein (Negative) mg/dL Urine Glucose (UA) (Negative) mg/dL Urine Ketones (Negative) mg/dL Urine Blood (Negative) Urine Nitrite (Negative) Ur Reducing Substances Urine Bilirubin (Negative) Urine Ictotest Urine Urobilinogen (<2.0) mg/dL Ur Leukocyte Esterase (Negative) Urine WBC (Auto) (0.0-6.0) /HPF Urine RBC (Auto) (0.0-6.0) /HPF U Epithel Cells (Auto) (0-13.0) /HPF Urine HCG, Qual (Negative) Urine Opiates Screen Urine Methadone Screen Ur Barbiturates Screen Ur Phencyclidine Scrn Ur Amphetamines Screen U Benzodiazepines Scrn Urine Cocaine Screen U Marijuana (THC) Screen Drugs of Abuse Note 09/28/18 09/28/18 09/28/18 Range/Units 21:21 22:28 22:28 WBC (4.5-11.0) K/mm3 RBC (3.65-5.03) M/mm3 Hgb (10.1-14.3) gm/dl Hct (30.3-42.9) % MCV (79-97) fl MCH (28-32) pg MCHC (30-34) % RDW (13.2-15.2) % Plt Count (140-440) K/mm3 Lymph % (Auto) (13.4-35.0) % [place] % (Auto) (0.0-7.3) % Eos % (Auto) (0.0-4.3) % Baso % (Auto) (0.0-1.8) % Lymph # (1.2-5.4) K/mm3 [place] # (0.0-0.8) K/mm3 Eos # (0.0-0.4) K/mm3 Baso # (0.0-0.1) K/mm3 Seg Neutrophils % (40.0-70.0) % Seg Neutrophils # (1.8-7.7) K/mm3 D-Dimer (0-234) ng/mlDDU Sodium (137-145) mmol/L Potassium (3.6-5.0) mmol/L Chloride (98-107) mmol/L Carbon Dioxide (22-30) mmol/L Anion Gap mmol/L BUN (7-17) mg/dL Creatinine (0.7-1.2) mg/dL Estimated GFR ml/min BUN/Creatinine Ratio % Glucose (65-100) mg/dL Calcium (8.4-10.2) mg/dL Magnesium 1.70 (1.7-2.3) mg/dL Total Bilirubin (0.1-1.2) mg/dL AST (5-40) units/L ALT (7-56) units/L Alkaline Phosphatase (35-129) units/L Troponin T (0.00-0.029) ng/mL Total Protein (6.3-8.2) g/dL Albumin (3.9-5) g/dL Albumin/Globulin Ratio % Urine Color Straw (Yellow) Urine Turbidity Clear (Clear) Urine pH 6.0 (5.0-7.0) Ur Specific [place] 1.006 (1.003-1.030) Urine Protein <15 mg/dl (Negative) mg/dL Urine Glucose (UA) Neg (Negative) mg/dL Urine Ketones Neg (Negative) mg/dL Urine Blood Neg (Negative) Urine Nitrite Neg (Negative) Ur Reducing Substances Not Reportable Urine Bilirubin Neg (Negative) Urine Ictotest Not Reportable Urine Urobilinogen < 2.0 (<2.0) mg/dL Ur Leukocyte Esterase Neg (Negative) Urine WBC (Auto) 1.0 (0.0-6.0) /HPF Urine RBC (Auto) 2.0 (0.0-6.0) /HPF U Epithel Cells (Auto) 3.0 (0-13.0) /HPF Urine HCG, Qual Negative (Negative) Urine Opiates Screen Presumptive negative Urine Methadone Screen Presumptive negative Ur Barbiturates Screen Presumptive negative Ur Phencyclidine Scrn Presumptive negative Ur Amphetamines Screen Presumptive negative U Benzodiazepines Scrn Presumptive negative Urine Cocaine Screen Presumptive negative U Marijuana (THC) Screen Presumptive positive Drugs of Abuse Note Disclamer - EKG Data -: EKG Interpreted by [place] EKG shows normal: sinus rhythm, axis (qrs 73), QRS complexes (qrsd 80), ST-T waves (no stemi) Rate: bradycardia (59) - Radiology Data Radiology results: report reviewed CT head/brain wo con INDICATION / CLINICAL INFORMATION: left face numb. TECHNIQUE: All CT scans at this location are performed using CT dose reduction for ALARA by means of automated exposure control. COMPARISON: None available. FINDINGS: No intracranial hemorrhage or abnormal extra-axial fluid collection. No evidence of territorial infarction. The ventricular system and basilar cisterns are normal. No mass effect. Visualized sinuses and osseous structures are normal. IMPRESSION: 1. Negative nonenhanced head CT. Examination: Chest radiograph, 2 views, 09/28/2018 Clinical information: Chest pain Comparison: None. Findings: Heart size and pulmonary vascularity appear within normal limits. There is no focal airspace disease or significant pleural effusion. Impression: No evidence of acute cardiopulmonary process. - Differential Diagnosis multiple sclerosis, CVA, TIA, pneumonia, bronchitis, costochondritis or PE Critical care attestation.: If time is entered above; I have spent that time in minutes in the direct care of this critically ill patient, excluding procedure time. ED Disposition Clinical Impression: Left leg paresthesias, Arm paresthesia, left, Facial paresthesia, Acute bronchitis, Chest wall pain Disposition: OP ADMIT IP TO THIS HOSP Is pt being admited?: Yes Condition: Stable Time of Disposition: 00:20
--- NOTE | 2018-09-28 22:26 | XRay Report ---
Examination: Chest radiograph, 2 views, 09/28/2018 Clinical information: Chest pain Comparison: None. Findings: Heart size and pulmonary vascularity appear within normal limits. There is no focal airspac e disease or significant pleural effusion. Impression: No evidence of acute cardiopulmonary process. Signer Name: Indy Corcoran MD Signed: 09/28/2018 10:21 PM Workstation Name: [id number]
[2018-09-28 23:10] LABS: HCG Qualitative,Urine Negative (Negative)
[2018-09-28 23:11] LABS: Bilirubin,Urine NEG (Negative); Blood,Urine NEG (Negative); Color,Urine Straw (Yellow); Protein,Urine <15 mg/dL mg/dL (Negative); Urobilinogen,Urine < 2.0 mg/dL (<2.0)
[2018-09-28 23:16] LABS: Amphetamine Screen,Urine PRESUMPTIVE NEGATIVE; Benzodiazepines Screen,Urine PRESUMPTIVE NEGATIVE; Cocaine Screen,Urine PRESUMPTIVE NEGATIVE; Methadone Screen,Urine PRESUMPTIVE NEGATIVE; Opiate Screen,Urine PRESUMPTIVE NEGATIVE
[2018-09-28 23:28] LABS: Cannabinoid Screen,Urine PRESUMPTIVE POSITIVE
[2018-09-28] MEDS ORDERED: K-DUR PO ONE (23:48)
--- NOTE | 2018-09-29 00:15 | Cat Scan Report ---
CT head/brain wo con INDICATION / CLINICAL INFORMATION: left face numb. TECHNIQUE: All CT scans at this location are performed using CT dose reduction for ALARA by means of automated e xposure control. COMPARISON: None available. FINDINGS: No intracranial hemorrhage or abnormal extra-axial fluid collection. No evidence of territorial infarction. The ventricular system and basilar cisterns are normal. No mass effect. Visualized sinuses and osseous structures are normal. IMPRESSION: 1. Negative nonenhanced head CT. Signer Name: Akhil Malin MD Signed: 09/29/2018 12:10 AM Workstation Name: [id number]
[2018-09-29] MEDS ORDERED: TYLENOL PO ONE (00:24)
[2018-09-29] MEDS ORDERED: TYLENOL PO PRN (00:32)
[2018-09-29] MEDS ORDERED: PERCOCET 5/325 PO PRN (00:32)
[2018-09-29] MEDS ORDERED: PROVENTIL IH PRN (00:32)
[2018-09-29] MEDS ORDERED: SODIUM CHLORIDE FLUSH SYRINGE 10 ML IV PRN (00:32)
[2018-09-29] MEDS ORDERED: NITROSTAT SL PRN (01:07)
--- NOTE | 2018-09-29 01:14 | History and Physical Report ---
<ROJASBEATRIZ Brenda - Last Filed: 09/29/18 01:30> History of Present Illness Date of examination: 09/29/18 Date of admission: 09/29/2018 Chief complaint: Chest pain, cough, left -sided numbness/tingling History of present illness: 38-year-old -[place] female with no significant medical history except for remote history of bronchitis who presents to [facility] ED with complaints of non- specific chest pain, shortness of breath, and left-sided paresthesia/numbness. Patient states that she's been experiencing intermittent sharp chest pain, cough with clear/yellow sputum production, and left-sided paresthesiasnumbness for the past 2 days. Patient states that her chest pain exacerbated with movement, cough and exertion. She rates her pain 9/10 and describes it as sharp. Chest pain is located to the left and right upper chest and is nonradiating. She also complains of intermittent left sided tingling and numbness which seems to be progressively worsening over the past day. Patient states that she woke up severely short of breath with numbness and tingling to her left upper extremity and left lower extremity. She states that she feels like her left side is " for a couple of seconds". The numbness and tingling improved after moving her arms and legs. She denies sleeping on left side. Additionally she complains of tingling to left side of face and left-sided frontal headache. Admits: PND, SOB, Cough with discolored sputum production, marijuana abuse, headache, left-sided paresthesia and numbness, chest pain Denies: Fever, hemoptysis, nausea, vomiting, diarrhea, recent head /neck Trauma, or gait disturbances Past History Past Medical History: other (vaginal delivery x1, STD (vaginitis)) Past Surgical History: Other ( x1) Social history: lives with family, smoking (current everyday marijuana smoker) Family history: cancer (uncle- lung cancer, grandmother-breast cancer) Medications and Allergies Allergies Allergy/AdvReac Type Severity Reaction Status Date / Time No Known Allergies Allergy Verified 10/16/14 14:15 Home Medications Medication Instructions Recorded Confirmed Last Taken Type No Known Home Medications [No 09/29/18 09/29/18 Unknown History Reported Home Medications] Active Meds: Active Medications Acetaminophen (Tylenol) 650 mg PO Q4H PRN PRN Reason: Pain MILD(1-3)/Fever >100.5/LIND Albuterol (Proventil) 2.5 mg IH Q4HRT PRN PRN Reason: Shortness Of Breath Budesonide (Pulmicort) 0.[address] [facility] Docusate Sodium (Colace) [address] [facility] Enoxaparin Sodium (Lovenox) 40 mg SUB-Q QDAY [facility] Guaifenesin (Mucinex Er) [address] [facility] Levofloxacin/Dextrose (Levaquin 500mg/100ml) 500 mg in 100 mls @ 100 mls/hr IV Q24HR [facility]; Protocol Nitroglycerin (Nitrostat) 0.4 mg SL .Q5MIN PRN PRN Reason: Chest Pain Ondansetron HCl (Zofran) 4 mg IV Q8H PRN PRN Reason: Nausea And Vomiting Oxycodone/Acetaminophen (Percocet 5/325) 1 tab PO Q6H PRN PRN Reason: Pain, Moderate (4-6) Sodium Chloride (Sodium Chloride Flush Syringe 10 Ml) [address] [facility] Sodium Chloride (Sodium Chloride Flush Syringe 10 Ml) 10 ml IV PRN PRN PRN Reason: LINE FLUSH Review of Systems All systems: negative (reviewed and no additional remarkable complaints except as noted below) Cardiovascular: chest pain, shortness of breath, paroxysmal nocturnal dyspnea Respiratory: cough with sputum (clear/yellow), shortness of breath, dyspnea on exertion, wheezing Neurological: parathesias (left-sided), numbness (left-sided), tingling (left-si ded) Exam - Physical Exam Narrative exam: Physical exam General appearance: Present: No acute distress, alert and oriented 3, well- developed -[place] adult female - EENT Eyes: Present: PERRL, EOM intact ENT: hearing intact, normal dentition - Neck Neck: Present: supple, normal ROM - Respiratory Respiratory effort: Non-labored Respiratory: bilateral: diminished (bases), prolonged expiratory phase - Cardiovascular Heart rate: 59 (bpm) Rhythm: Sinus bradycardia Heart Sounds: Present: S1 & S2. Absent: rub, click - Extremities Extremities: no ischemia, pulses intact, - Peripheral Assessment Peripheral Pulses: within normal limits - Abdominal General gastrointestinal: soft, non-tender, normal bowel sounds - Integumentary Integumentary: Present: warm, dry - Musculoskeletal Musculoskeletal: Equal muscle strength bilaterally - Psychiatric Psychiatric: cooperative - Constitutional Vitals: Temp Pulse Resp BP Pulse Ox 98.2 F 64 12 131/76 98 09/28/18 20:58 09/28/18 23:30 09/28/18 23:30 09/29/18 00:30 09/29/18 00:30 Results - Labs CBC & Chem 7: 09/28/18 21:21 09/28/18 21:21 Labs: Laboratory Last Values WBC 6.1 K/mm3 (4.5-11.0) 09/28/18 21:21 RBC 3.94 M/mm3 (3.65-5.03) 09/28/18 21:21 Hgb 12.2 gm/dl (10.1-14.3) 09/28/18 21:21 Hct 36.1 % (30.3-42.9) 09/28/18 21:21 MCV 92 fl (79-97) 09/28/18 21:21 MCH 31 pg (28-32) 09/28/18 21:21 MCHC 34 % (30-34) 09/28/18 21:21 RDW 15.1 % (13.2-15.2) 09/28/18 21:21 Plt Count 236 K/mm3 (140-440) 09/28/18 21:21 Lymph % (Auto) 25.8 % (13.4-35.0) 09/28/18 21:21 Hunt % (Auto) 7.4 % (0.0-7.3) H 09/28/18 21:21 Eos % (Auto) 4.2 % (0.0-4.3) 09/28/18 21:21 Baso % (Auto) 1.1 % (0.0-1.8) 09/28/18 21:21 Lymph # 1.6 K/mm3 (1.2-5.4) 09/28/18 21:21 Hunt # 0.4 K/mm3 (0.0-0.8) 09/28/18 21:21 Eos # 0.3 K/mm3 (0.0-0.4) 09/28/18 21:21 Baso # 0.1 K/mm3 (0.0-0.1) 09/28/18 21:21 Seg Neutrophils % 61.5 % (40.0-70.0) 09/28/18 21:21 Seg Neutrophils # 3.7 K/mm3 (1.8-7.7) 09/28/18 21:21 143.25 ng/mlDDU (0-234) 09/28/18 21:21 Sodium 139 mmol/L (137-145) 09/28/18 21:21 Potassium 3.4 mmol/L (3.6-5.0) L 09/28/18 21:21 Chloride 102.6 mmol/L (98-107) 09/28/18 21:21 Carbon Dioxide 24 mmol/L (22-30) 09/28/18 21:21 16 mmol/L 09/28/18 21:21 BUN 7 mg/dL (7-17) 09/28/18 21:21 0.7 mg/dL (0.7-1.2) 09/28/18 21:21 Estimated GFR > 60 ml/min 09/28/18 21:21 10 % 09/28/18 21:21 Glucose 72 mg/dL (65-100) 09/28/18 21:21 Calcium 9.3 mg/dL (8.4-10.2) 09/28/18 21:21 Magnesium 1.70 mg/dL (1.7-2.3) 09/28/18 21:21 1.50 mg/dL (0.1-1.2) H 09/28/18 21:21 AST 14 units/L (5-40) 09/28/18 21:21 ALT 8 units/L (7-56) 09/28/18 21:21 65 units/L (35-129) 09/28/18 21:21 < 0.010 ng/mL (0.00-0.029) 09/28/18 21:21 7.6 g/dL (6.3-8.2) 09/28/18 21:21 4.3 g/dL (3.9-5) 09/28/18 21:21 1.3 % 09/28/18 21:21 Straw (Yellow) 09/28/18 22:28 Clear (Clear) 09/28/18 22:28 6.0 (5.0-7.0) 09/28/18 22:28 Ur Specific [place] 1.006 (1.003-1.030) 09/28/18 22:28 <15 mg/dl mg/dL (Negative) 09/28/18 22:28 Neg mg/dL (Negative) 09/28/18 22:28 Neg mg/dL (Negative) 09/28/18 22:28 Neg (Negative) 09/28/18 22:28 Neg (Negative) 09/28/18 22:28 Ur Reducing Substances Not Reportable 09/28/18 22:28 Neg (Negative) 09/28/18 22:28 Not Reportable 09/28/18 22:28 < 2.0 mg/dL (<2.0) 09/28/18 22:28 Ur Leukocyte Esterase Neg (Negative) 09/28/18 22:28 1.0 /HPF (0.0-6.0) 09/28/18 22:28 2.0 /HPF (0.0-6.0) 09/28/18 22:28 U Epithel Cells (Auto) 3.0 /HPF (0-13.0) 09/28/18 22:28 Urine HCG, Qual Negative (Negative) 09/28/18 22:28 Presumptive negative 09/28/18 22:28 Presumptive negative 09/28/18 22:28 Ur Barbiturates Screen Presumptive negative 09/28/18 22:28 Ur Phencyclidine Scrn Presumptive negative 09/28/18 22:28 Ur Amphetamines Screen Presumptive negative 09/28/18 22:28 U Benzodiazepines Scrn Presumptive negative 09/28/18 22:28 Presumptive negative 09/28/18 22:28 U Marijuana (THC) Screen Presumptive positive 09/28/18 22:28 Disclamer 09/28/18 22:28 - Imaging and Cardiology EKG: image reviewed (59 bpm, sinus bradycardia) Chest x-ray: report reviewed (Findings: Heart size and pulmonary vascularity appear within normal limits. There is no focal ), image reviewed Imaging and Cardiology: CT Head: FINDINGS: No intracranial hemorrhage or abnormal extra-axial fluid collection. No evidence of territorial infarction. The ventricular system and basilar cisterns are normal. No mass effect. Visualized sinuses and osseous structures are normal. IMPRESSION: 1. Negative nonenhanced head CT. Assessment and Plan Assessment and plan: 38-year-old -[place] female with no significant medical history except for remote history of bronchitis who presents to [facility] ED with complaints of non- specific chest pain, shortness of breath, and left-sided paresthesia/numbness for the past [address] Head did not reveal any intracranial hemorrhage, abnormal extra-axial fluid collection, mass or evidence of infarction. CXR unremarkable. Telemetry neurology was consulted and recommended MRI brain. Recommendations appreciated will admit to telemetry for further evaluation. Bronchitis Acute chest pain- likely related to bronchitis Left-sided weakness Left-sided paresthesia and numbness Marijuana abuse Mild hypokalemia Plan: Continue supportive care Pain management Continuous telemetry monitoring MRI brain pending Neurology consult pending Cardiac enzymes pending Start Levaquin 500 mg every 24 hours Start Mucinex 600 mg twice a day Start Albuterol when necessary Start Pulmicort BID Counseled for marijuana cessation Monitor electrolytes replete as needed; received po potassium 20 mEq in ED DVT PPX on Lovenox Advance Directives: No VTE prophylaxis?: Chemical Plan of care discussed with patient/family: Yes <CELESTE MCCARTHY - Last Filed: 09/29/18 05:32> History of Present Illness Date of admission: 09/29/18 00:32 Medications and Allergies Active Meds: Active Medications Acetaminophen (Tylenol) 650 mg PO Q4H PRN PRN Reason: Pain MILD(1-3)/Fever >100.5/LIND Albuterol (Proventil) 2.5 mg IH Q4HRT PRN PRN Reason: Shortness Of Breath Budesonide (Pulmicort) 0.[address] [facility] Docusate Sodium (Colace) 100 mg PO BID [facility] Enoxaparin Sodium (Lovenox) 40 mg SUB-Q QDAY [facility] Guaifenesin (Mucinex Er) 600 mg PO BID [facility] Levofloxacin/Dextrose (Levaquin 500mg/100ml) 500 mg in 100 mls @ 100 mls/hr IV Q24HR [facility]; Protocol Nitroglycerin (Nitrostat) 0.4 mg SL .Q5MIN PRN PRN Reason: Chest Pain Ondansetron HCl (Zofran) 4 mg IV Q8H PRN PRN Reason: Nausea And Vomiting Oxycodone/Acetaminophen (Percocet 5/325) 1 tab PO Q6H PRN PRN Reason: Pain, Moderate (4-6) Sodium Chloride (Sodium Chloride Flush Syringe 10 Ml) 10 ml IV BID [facility] Sodium Chloride (Sodium Chloride Flush Syringe 10 Ml) 10 ml IV PRN PRN PRN Reason: LINE FLUSH Exam - Constitutional Vitals: Temp Pulse Resp BP Pulse Ox 98.2 F 64 12 131/76 98 09/28/18 20:58 09/28/18 23:30 09/28/18 23:30 09/29/18 00:30 09/29/18 00:30 Results - Labs CBC & Chem 7: 09/28/18 21:21 09/28/18 21:21 Labs: Laboratory Last Values WBC 6.1 K/mm3 (4.5-11.0) 09/28/18 21:21 RBC 3.94 M/mm3 (3.65-5.03) 09/28/18 21:21 Hgb 12.2 gm/dl (10.1-14.3) 09/28/18 21:21 Hct 36.1 % (30.3-42.9) 09/28/18 21:21 MCV 92 fl (79-97) 09/28/18 21:21 MCH 31 pg (28-32) 09/28/18 21:21 MCHC 34 % (30-34) 09/28/18 21:21 RDW 15.1 % (13.2-15.2) 09/28/18 21:21 Plt Count 236 K/mm3 (140-440) 09/28/18 21:21 Lymph % (Auto) 25.8 % (13.4-35.0) 09/28/18 21:21 Hunt % (Auto) 7.4 % (0.0-7.3) H 09/28/18 21:21 Eos % (Auto) 4.2 % (0.0-4.3) 09/28/18 21:21 Baso % (Auto) 1.1 % (0.0-1.8) 09/28/18 21:21 Lymph # 1.6 K/mm3 (1.2-5.4) 09/28/18 21:21 Hunt # 0.4 K/mm3 (0.0-0.8) 09/28/18 21:21 Eos # 0.3 K/mm3 (0.0-0.4) 09/28/18 21:21 Baso # 0.1 K/mm3 (0.0-0.1) 09/28/18 21:21 Seg Neutrophils % 61.5 % (40.0-70.0) 09/28/18 21:21 Seg Neutrophils # 3.7 K/mm3 (1.8-7.7) 09/28/18 21:21 143.25 ng/mlDDU (0-234) 09/28/18 21:21 Sodium 139 mmol/L (137-145) 09/28/18 21:21 Potassium 3.4 mmol/L (3.6-5.0) L 09/28/18 21:21 Chloride 102.6 mmol/L (98-107) 09/28/18 21:21 Carbon Dioxide 24 mmol/L (22-30) 09/28/18 21:21 16 mmol/L 09/28/18 21:21 BUN 7 mg/dL (7-17) 09/28/18 21:21 0.7 mg/dL (0.7-1.2) 09/28/18 21:21 Estimated GFR > 60 ml/min 09/28/18 21:21 10 % 09/28/18 21:21 Glucose 72 mg/dL (65-100) 09/28/18 21:21 Calcium 9.3 mg/dL (8.4-10.2) 09/28/18 21:21 Magnesium 1.70 mg/dL (1.7-2.3) 09/28/18 21:21 1.50 mg/dL (0.1-1.2) H 09/28/18 21:21 AST 14 units/L (5-40) 09/28/18 21:21 ALT 8 units/L (7-56) 09/28/18 21:21 65 units/L (35-129) 09/28/18 21:21 < 0.010 ng/mL (0.00-0.029) 09/28/18 21:21 7.6 g/dL (6.3-8.2) 09/28/18 21:21 4.3 g/dL (3.9-5) 09/28/18 21:21 1.3 % 09/28/18 21:21 Straw (Yellow) 09/28/18 22:28 Clear (Clear) 09/28/18 22:28 6.0 (5.0-7.0) 09/28/18 22:28 Ur Specific [place] 1.006 (1.003-1.030) 09/28/18 22:28 <15 mg/dl mg/dL (Negative) 09/28/18 22:28 Neg mg/dL (Negative) 09/28/18 22:28 Neg mg/dL (Negative) 09/28/18 22:28 Neg (Negative) 09/28/18 22:28 Neg (Negative) 09/28/18 22:28 Ur Reducing Substances Not Reportable 09/28/18 22:28 Neg (Negative) 09/28/18 22:28 Not Reportable 09/28/18 22:28 < 2.0 mg/dL (<2.0) 09/28/18 22:28 Ur Leukocyte Esterase Neg (Negative) 09/28/18 22:28 1.0 /HPF (0.0-6.0) 09/28/18 22:28 2.0 /HPF (0.0-6.0) 09/28/18 22:28 U Epithel Cells (Auto) 3.0 /HPF (0-13.0) 09/28/18 22:28 Urine HCG, Qual Negative (Negative) 09/28/18 22:28 Presumptive negative 09/28/18 22:28 Presumptive negative 09/28/18 22:28 Ur Barbiturates Screen Presumptive negative 09/28/18 22:28 Ur Phencyclidine Scrn Presumptive negative 09/28/18 22:28 Ur Amphetamines Screen Presumptive negative 09/28/18 22:28 U Benzodiazepines Scrn Presumptive negative 09/28/18 22:28 Presumptive negative 09/28/18 22:28 U Marijuana (THC) Screen Presumptive positive 09/28/18 22:28 Disclamer 09/28/18 22:28 Assessment and Plan Assessment and plan: 38 year year-old woman comes to the emergency room for evaluation of left-sided paresthesia and numbness and weakness. No weakness present on exam. Agree with plan as stated above for work up of neurological symptoms and bronchitis. Seen and examined, d/w nurse practitioner
[2018-09-29] MEDS ORDERED: MUCINEX ER PO ONE (06:50)
[2018-09-29 07:26] LABS: Creatine Kinase MB < 1.0 ng/mL (0.0-4.0)
[2018-09-29] MEDS: PULMICORT IH SCH ×2 (07:53→20:24)
--- NOTE | 2018-09-29 09:47 | Magnetic Resonance Report ---
MRI BRAIN WITHOUT CONTRAST INDICATION / CLINICAL INFORMATION: left sided weakness/ numbness. TECHNIQUE: Multiplanar, multisequence MR images of the brain were obtained. COMPARISON: None available. FINDINGS: BRAIN / INTRACRANIAL CONTENTS: MR images of the brain demonstrate no evidence of acute intracranial a bnormality. Ventricles and sulci are normal in size and shape. There is no evidence of ischemic injury, hemorrhage, or mass. There is no evidence of demyelination. There are no abnormal extra-axial fluid collections. EXTRACRANIAL: Unremarkable CRANIOCERVICAL JUNCTION: No significant abnormality. VASCULAR FLOW-VOIDS: No significant abnormality. IMPRESSION: Negative unenhanced MRI of the brain. Signer Name: Chacorta Marlow MD Signed: 09/29/2018 9:43 AM Workstation Name: [id number] [facility]
[2018-09-29] MEDS: LOVENOX SUB-Q SCH (09:51)
[2018-09-29] MEDS: COLACE PO SCH ×2 (09:51→22:33)
[2018-09-29] MEDS: LEVAQUIN 500MG/100ML 500 MG/100 ML BAG IV SCH (09:52)
[2018-09-29] MEDS: MUCINEX ER PO SCH ×2 (09:52→22:32)
[2018-09-29] MEDS: SODIUM CHLORIDE FLUSH SYRINGE 10 ML IV SCH ×2 (09:53→22:35)
[2018-09-29] MEDS: ZOFRAN IV PRN (11:08)
--- NOTE | 2018-09-29 13:19 | Event Note ---
Date: 09/29/18 Patient presented with chest pain, headache, left sided numbness,tingling. MRI Brain neg. For stress test tomorrow.
--- NOTE | 2018-09-29 18:08 | Consultation ---
History of Present Illness Consult date: 09/29/18 Chief complaint: headache, paresthesias History of present illness: This is a 38 YO previously healthy F who presented with chest pain and numb ness/weakness on the left. Says this never happened before. Neuro symptoms are worse when the breathing is worse and improves when breathing improves. MRI with no deficits. No neck pain. Past History Past Medical History: other (vaginal delivery x1, STD (vaginitis), bronchitis) Past Surgical History: Other ( x1) Social history: lives with family, smoking (current everyday marijuana smoker) Family history: cancer (uncle- lung cancer, grandmother-breast cancer) Medications and Allergies Allergies Allergy/AdvReac Type Severity Reaction Status Date / Time No Known Allergies Allergy Verified 10/16/14 14:15 Home Medications Medication Instructions Recorded Confirmed Last Taken Type No Known Home Medications [No 09/29/18 09/29/18 Unknown History Reported Home Medications] Active Meds: Active Medications Acetaminophen (Tylenol) 650 mg PO Q4H PRN PRN Reason: Pain MILD(1-3)/Fever >100.5/LIND Last Admin: 09/29/18 06:54 Dose: 650 mg Documented by: Albuterol (Proventil) 2.5 mg IH Q4HRT PRN PRN Reason: Shortness Of Breath Budesonide (Pulmicort) 0.5 mg IH Q12HRT [facility] Last Admin: 09/29/18 07:53 Dose: 0.5 mg Documented by: Docusate Sodium (Colace) 100 mg PO BID [facility] Last Admin: 09/29/18 09:51 Dose: 100 mg Documented by: Enoxaparin Sodium (Lovenox) 40 mg SUB-Q QDAY [facility] Last Admin: 09/29/18 09:51 Dose: 40 mg Documented by: Guaifenesin (Mucinex Er) 600 mg PO BID [facility] Last Admin: 09/29/18 09:52 Dose: 600 mg Documented by: Levofloxacin/Dextrose (Levaquin 500mg/100ml) 500 mg in 100 mls @ 100 mls/hr IV Q24HR [facility]; Protocol Last Infusion: 09/29/18 10:56 Dose: Infused Documented by: Nitroglycerin (Nitrostat) 0.4 mg SL .Q5MIN PRN PRN Reason: Chest Pain Last Admin: 09/29/18 06:44 Dose: 0.4 mg Documented by: Ondansetron HCl (Zofran) 4 mg IV Q8H PRN PRN Reason: Nausea And Vomiting Last Admin: 09/29/18 11:08 Dose: 4 mg Documented by: Oxycodone/Acetaminophen (Percocet 5/325) 1 tab PO Q6H PRN PRN Reason: Pain, Moderate (4-6) Sodium Chloride (Sodium Chloride Flush Syringe 10 Ml) 10 ml IV BID [facility] Last Admin: 09/29/18 09:53 Dose: 10 ml Documented by: Sodium Chloride (Sodium Chloride Flush Syringe 10 Ml) 10 ml IV PRN PRN PRN Reason: LINE FLUSH Review of Systems Neurological: parathesias, headaches Physical Examination - Vital Signs Vital Signs: Vital Signs Temp Pulse Resp BP Pulse Ox 98.2 F 79 16 118/83 99 09/28/18 19:58 09/28/18 19:58 09/28/18 19:58 09/28/18 19:58 09/28/18 19:58 - Constitutional General appearance: comfortable - EENT EENT: Present: PERRL, mucous membranes moist - Respiratory Respiratory: Present: lungs clear - Cardiovascular Cardiovascular: Present: regular rate - Gastrointestinal Gastrointestinal: Present: normoactive bowel sounds - Neurologic Cranial nerve examination: PERRL, EOMI, V1/V2/V3 grossly intact, face symmetric, tongue midline Speech examination: intact Sensorimotor examination: intact Motor examination - right side: 5/5: biceps, triceps, wrist flexion, wrist extension, hay stacker, hip flexors, knee extensors, dorsiflexion, toe extension (EHL), plantarflexion Motor examination - left side: 5/5: biceps, triceps, wrist flexion, wrist extension, hay stacker, hip flexors, knee extensors, dorsiflexion, toe extension (EHL), plantarflexion Detailed sensory examination: intact Reflex and gait examination: intact - Psychiatric Psychiatric: Present: mood/affect appropriate Results - Laboratory Findings CBC and BMP: 09/28/18 21:21 09/28/18 21:21 Abnormal Lab Findings: Abnormal Labs 09/28/18 09/28/18 21:21 21:21 [place] % (Auto) 7.4 H Potassium 3.4 L Total Bilirubin 1.50 H - Diagnostic Findings Additional findings: MRI Brain WNL Assessment and Plan This is a 38 YO F with headache and paresthesias in the setting of vhest pain. REcommend: MRI Brain unremarkable Will check labs for parethesias- B12, A1c, Folate, TSH Continue care for her medical issues as you are doing PRN analgesics for headache POC discussed with patient at bedside
[2018-09-30 05:24] LABS: Alanine Aminotransferase 7 units/L (7-56); Albumin 3.8 g/dL (3.9-5); BUN/Creatinine Ratio 11; Blood Urea Nitrogen 8 mg/dL (7-17); Calcium 9.1 mg/dL (8.4-10.2); Hemolysis Index 3
[2018-09-30] MEDS ORDERED: LEXISCAN IV ONE (06:52)
[2018-09-30] MEDS: MUCINEX ER PO SCH (10:00)
[2018-09-30] MEDS: SODIUM CHLORIDE FLUSH SYRINGE 10 ML IV SCH (10:00)
[2018-09-30] MEDS: LOVENOX SUB-Q SCH (10:00)
[2018-09-30] MEDS: ZOFRAN IV PRN (12:18)
[2018-09-30] MEDS: LEVAQUIN 500MG/100ML 500 MG/100 ML BAG IV SCH ×2 (12:32→12:36)
[2018-09-30] MEDS: COLACE PO SCH (12:32)
[2018-09-30] MEDS: PULMICORT IH SCH (12:47)
--- NOTE | 2018-09-30 13:51 | Discharge Summary ---
Providers - Providers Date of Admission: 09/29/18 00:32 Date of discharge: 09/30/18 Attending physician: GRECIA ABAD 09/29/18 00:32 Consult to Physician [CONS] Routine Comment: Consulting Provider: ASH DOLAN Physician Instructions: Reason For Exam: left sided weakness/ numbness 09/29/18 11:48 Occupational Therapy Evaluate and Treat [CONS] Routine Comment: cva w/u Reason For Exam: left side weak/numb Physical Therapy Evaluation and Treat [CONS] Routine Comment: cva work-up Reason For Exam: left side weak/numb Primary care physician: [facility] MD [facility] Hospitalization Condition: Fair Hospital course: Patient is 38 yo with no significant medical history presented with with complaints of chest pain, shortness of breath, and left-sided paresthesia/numbness. She was seen and evaluated in ED. CT head was unremarkable. She was admitted to rule out acute coronary syndrome and stroke. MRI Brain was unremarkable. She was evaluated by Neurologist. Stress test was done, was negative, Chest pain due to musculoskeletal pain. She was then discharged home. Stroke was ruled out. Disposition: DC- TO HOME OR SELFCARE - Discharge Diagnoses (1) Chest pain Status: Acute (2) Paresthesia Status: Acute (3) Musculoskeletal chest pain Status: Acute Core Measure Documentation - Palliative Care Palliative Care/ Comfort Measures: Not Applicable - Core Measures Any of the following diagnoses?: none Exam - Constitutional Vitals: Temp Pulse Resp BP Pulse Ox 98.9 F 79 18 112/76 100 09/30/18 12:32 09/30/18 13:06 09/30/18 13:06 09/30/18 12:32 09/30/18 12:32 Plan Activity: no restrictions Diet: regular Additional Instructions: 1.Follow up with PCP or [facility] in 1 week. Follow up with: MARVIN GEORGE MD [Primary Care Provider] - 3-5 Days Forms: Work/School Release Form Prescriptions: Butalb/Acetamin/Caff 50-325-40 [Fioricet 50-325-40] 1 tab PO Q6HR PRN #12 tab PRN Reason: Headache Promethazine [Phenergan] 25 mg PO Q6HR PRN #20 tab PRN Reason: Nausea Albuterol Sulfate [Proventil Hfa] 2 puff IH Q6H PRN #1 pump PRN Reason: Shortness Of Breath guaiFENesin [Robitussin] 200 mg PO Q4H PRN #20 tablet PRN Reason: Cough
[2018-09-30 17:38] VITALS: BP 116/79
--- NOTE | 2018-09-30 23:24 | Treadmill Report ---
THALLIUM REPORT REASON FOR STUDY: Chest pain. IMAGING PROTOCOL: The patient received 10 mCi of technetium-99 Tetrofosmin for rest imaging and 28 mCi of technetium-99m Tetrofosmin for stress imaging. Imaging for all procedures was completed 30-90 minutes following the initial injection of Technetium 99m Tetrofosmin. SPECT imaging in the 180 degree arc was performed in the right anterior oblique projection. Computerized reconstruction of the images was performed for analysis. NUCLEAR IMAGING RESULTS: Normal left ventricular cavity size with no change from stress to rest. Distribution of radionuclide within the left ventricle revealed normal myocardial photon uptake with stress and rest imaging. Gated SPECT imaging revealed normal global LV systolic function with no significant wall motion abnormalities. The calculated left ventricular ejection fraction is 62%. IMPRESSION: Normal stress and rest myocardial perfusion imaging. Normal global LV systolic function with no significant wall motion abnormalities. EF 62%. No evidence of significant stress-induced ischemia or prior infarction. JOB# [id number] HI/EDUARDO
--- NOTE | 2018-10-01 04:32 | Treadmill Report ---
TREADMILL STRESS TEST REPORT REASON FOR STUDY: Chest pain. STRESS TEST PROTOCOL: The patient completed 13 minutes of a Satish protocol. She attained a peak heart rate of 163 per minute, which is 88% of her age predicted maximum (12.1 METs). No ischemic ECG changes. No chest pain. No arrhythmias. The test was terminated due to fatigue. IMPRESSION: Negative stress test. No evidence of stress-induced ischemia. JOB# [id number] AGO/NTS
== END 2018-09-30 19:03 | disposition home or self-care (01) | DRG 203 ==
LOC: ED 19:40 → 4A 09-29 00:32
PROVIDERS: ADMIT Internal Medicine; ATTEND Internal Medicine
DX: J20.9 Acute bronchitis, unspecified (principal); R20.2 Paresthesia of skin; E87.6 Hypokalemia; R07.89 Other chest pain; R51 Headache; F17.200 Nicotine dependence, unspecified, uncomplicated; Z80.1 Family history of malignant neoplasm of trachea, bronchus and lung; Z80.3 Family history of malignant neoplasm of breast
CPT/HCPCS: 36415; 70450; 70551; 71046; 78452; 80053; 80307; 81001; 81025; 82550; 82553; 82607; 82747; 83036; 83735; 83880; 84443; 84484; 85025; 85379; 93005; 93010; 93017; 94640; G0378; A9502; J1650; J1885; J1956; J2405; J2785

== ENCOUNTER 2020-12-20 00:43 | Emergency (ER) | payer OTHER ==
[2020-12-20 01:52] VITALS: BP 129/91
[2020-12-20 03:18] LABS: Bacteria,Urine 1+ /HPF (Negative); Bilirubin,Urine NEG (Negative); Blood,Urine NEG (Negative); Color,Urine Yellow (Yellow); Protein,Urine <15 mg/dL mg/dL (Negative); Urobilinogen,Urine < 2.0 mg/dL (<2.0)
[2020-12-20] MEDS ORDERED: LIDOCAINE-MPF (1%) 10 MG/1 ML VIAL 5 ML INFILTRATI ONE (04:02)
--- NOTE | 2020-12-20 04:24 | Emergency Department Report ---
ED Female HPI - General Chief complaint: Abdominal Pain Stated complaint: ABD PAINS Time Seen by Provider: 12/20/20 02:45 Source: patient Mode of arrival: Ambulatory Limitations: No Limitations - History of Present Illness Initial comments: 40-year-old -[place] female is emerged from complaining of suspicion for possible STD exposure on 1 to 2 weeks ago after having unprotected sex patient reports having some vaginal irritation and some scant discharge that is increasing her suspicion. The discomfort has progressed to occasional suprapub ic cramping she reports no hematuria hematuria no vaginal bleeding, no fever, chills, sweats no chest pain no palpitation no nausea no vomiting. States she just came to the emergency department to get a shot s for STD Location: suprapubic Radiation: non-radiating Severity: mild Quality: sharp, dull Improves with: none Worsens with: none Are you Now?: No Associated Symptoms: vaginal discharge - Related Data Sexually active: Yes Previous Rx's Medication Instructions Recorded Last Taken Type Albuterol Sulfate [Proventil Hfa] 2 puff IH Q6H PRN #1 pump 09/30/18 Unknown Rx Butalb/Acetamin/Caff 50-325-40 1 tab PO Q6HR PRN #12 tab 09/30/18 Unknown Rx [Fioricet 50-325-40] Promethazine [Phenergan] 25 mg PO Q6HR PRN #20 tab 09/30/18 Unknown Rx guaiFENesin [Robitussin] 200 mg PO Q4H PRN #20 tablet 09/30/18 Unknown Rx Azithromycin [Zithromax TAB] 1,000 mg PO ONCE #2 tablet 12/20/20 Unknown Rx DOXYCYCLINE Hyclate [Vibramycin 100 mg PO BID #20 capsule 12/20/20 Unknown Rx CAP] metroNIDAZOLE [Flagyl] 2,000 mg PO ONCE #4 tablet 12/20/20 Unknown Rx Allergies Allergy/AdvReac Type Severity Reaction Status Date / Time No Known Allergies Allergy Verified 10/16/14 14:15 ED Review of Systems ROS: Stated complaint: ABD PAINS Other details as noted in HPI Comment: All other systems reviewed and negative ED Past Medical Hx - Past Medical History Previous Medical History?: Yes Additional medical history: Vaginal delivery x 1 - Surgical History Past Surgical History?: No Additional Surgical History: - Social History Smoking Status: Never Smoker - Medications Home Medications: Home Medications Medication Instructions Recorded Confirmed Last Taken Type Albuterol Sulfate [Proventil Hfa] 2 puff IH Q6H PRN #1 pump 09/30/18 Unknown Rx Butalb/Acetamin/Caff 50-325-40 1 tab PO Q6HR PRN #12 tab 09/30/18 Unknown Rx [Fioricet 50-325-40] Promethazine [Phenergan] 25 mg PO Q6HR PRN #20 tab 09/30/18 Unknown Rx guaiFENesin [Robitussin] 200 mg PO Q4H PRN #20 tablet 09/30/18 Unknown Rx Azithromycin [Zithromax TAB] 1,000 mg PO ONCE #2 tablet 12/20/20 Unknown Rx DOXYCYCLINE Hyclate [Vibramycin 100 mg PO BID #20 capsule 12/20/20 Unknown Rx CAP] metroNIDAZOLE [Flagyl] 2,000 mg PO ONCE #4 tablet 12/20/20 Unknown Rx ED Physical Exam - General Limitations: No Limitations General appearance: alert, in no apparent distress - Head Head exam: Present: atraumatic, normocephalic - Eye Eye exam: Present: normal appearance, PERRL, EOMI - ENT ENT exam: Present: mucous membranes moist - Neck Neck exam: Present: normal inspection - Respiratory Respiratory exam: Present: normal lung sounds bilaterally. Absent: respiratory distress - Cardiovascular Cardiovascular Exam: Present: regular rate, normal rhythm. Absent: systolic murmur, diastolic murmur, rubs, gallop - GI/Abdominal GI/Abdominal exam: Present: soft, normal bowel sounds - Extremities Exam Extremities exam: Present: normal inspection - Back Exam Back exam: Present: normal inspection - Neurological Exam Neurological exam: Present: alert, oriented X3 - Psychiatric Psychiatric exam: Present: normal affect, normal mood - Skin Skin exam: Present: warm, dry, intact, normal color. Absent: rash ED Course Vital Signs 12/20/20 01:39 Temperature 98.4 F Pulse Rate 82 Respiratory 16 Rate Blood Pressure 129/91 O2 Sat by Pulse 100 Oximetry Critical care attestation.: If time is entered above; I have spent that time in minutes in the direct care of this critically ill patient, excluding procedure time. ED Disposition Clinical Impression: Possible exposure to STD Disposition: 01 HOME / SELF CARE / HOMELESS Is pt being admited?: No Does the pt Need Aspirin: No Condition: Stable Instructions: Abdominal Pain (ED), Safe Sex, Vaginitis, Trichomoniasis Additional Instructions: Seen emergency department for the possibility of acid exposure to complete the treatment protocol please take the provided medications Prescriptions: metroNIDAZOLE [Flagyl] 2,000 mg PO ONCE #4 tablet DOXYCYCLINE Hyclate [Vibramycin CAP] 100 mg PO BID #20 capsule Azithromycin [Zithromax TAB] 1,000 mg PO ONCE #2 tablet Referrals: [facility] [Outside] - 3-5 Days
== END 2020-12-20 04:56 | disposition home or self-care (01) ==
LOC: ED 00:43
DX: Z20.2 Contact with and (suspected) exposure to infections with a predominantly sexual mode of transmission (principal); Z98.890 Other specified postprocedural states
CPT/HCPCS: 81001; 96372; 99283; J0696